=== PATIENT | female | born 1970 | race Caucasian/White ===

== ENCOUNTER → 2021-07-31 | Outpatient (CLI) | payer BC ==
--- NOTE | 2021-08-01 08:09 | MM ---
Reason for Exam: Screening (asymptomatic). Baseline mammogram. Patient History: Menarche at age 13. First Full-Term at age 25. Risk Values: [place] 5 year model risk: 1.0%. NCI Lifetime model risk: 8.9%. Prior Study Comparison: Patient's first Mammogram. No prior studies available for comparison. Tissue Density: The breast tissue is heterogeneously dense. This may lower the sensitivity of mammography. Findings: Analyzed By CAD. There is no suspicious group of microcalcifications or new suspicious mass in either breast. Overall Assessment: Benign, BI-RAD 2 Management: Screening Mammogram of both breasts in 1 year. A clinical breast exam by your physician is recommended on an annual basis and results should be correlated with mammographic findings. Electronically signed and approved by: Kin Sanchez M.D. Radiologis
== END | disposition home or self-care (01) ==
LOC: RADMAMWWP 09:15
PROVIDERS: ATTEND Obstetrics & Gynecology
DX: Z12.31 Encounter for screening mammogram for malignant neoplasm of breast (principal)
CPT/HCPCS: 77067

== ENCOUNTER → 2022-05-21 | Outpatient (CLI) | payer BC, OTHER ==
--- NOTE | 2022-05-21 17:30 | CT ---
EXAMINATION TYPE: CT knee LT wo con DATE OF EXAM: 05/21/2022 COMPARISON: Recent CT April 03, 2022. HISTORY: left knee osteoarthritis. Pain. Status post arthroscopy with partial medial meniscectomy June 27, 2021. Status post work injury February 07, 2021. CT DLP: 959 mGycm Automated exposure control for dose reduction was used. FINDINGS: Exam is performed for surgical planning and not for diagnostic purposes. Images of the pelv is redemonstrate anteverted uterus and scattered pelvic phleboliths. Mild axial joint space loss in b oth hips is redemonstrated. No suspicious incidental finding is present. Prior visualized 3.0 cm cyst or cystic lesion right pelvis now is not clearly seen. Images of the left knee redemonstrate moderate narrowing patellofemoral compartment. There is moderat e narrowing medial tibiofemoral compartment redemonstrated. There is persistent 1.5 cm chondroid intr amedullary lesion in the distal right femoral metaphysis could reflect enchondroma or other nonaggres sive etiology. Images of the bilateral ankles show no suspicious incidental finding. IMPRESSION: As above. No significant new finding from most recent prior CT.
== END | disposition home or self-care (01) ==
LOC: RADCTMAIN 15:53
PROVIDERS: ATTEND Orthopaedic Surgery
DX: M17.12 Unilateral primary osteoarthritis, left knee (principal)

== ENCOUNTER → 2022-06-03 | Outpatient (CLI) | payer OTHER ==
[2022-06-03 15:46] LABS: Partial Thromboplastin Time 22.4 sec (22.0-30.0); Prothrombin Time 10.4 sec (9.0-12.0)
[2022-06-03 20:33] LABS: HCT 42.8 % (37.2-46.3); HGB 13.2 g/dL (12.0-15.0); MCHC 30.8 g/dL (32.0-37.0); MCV 87.5 fL (80.0-97.0); Mean Platelet Volume 11.3 fL (9.5-12.2); NRBC Per 100 WBC 0 /100 WBCS (0.0-0.0); Platelet Count 265 X 10*3/uL (140-440); RBC 4.89 X 10*6/uL (4.10-5.20); RDW 13.1 % (11.5-14.5); WBC 9.67 X 10*3/uL (4.50-10.00)
[2022-06-03 20:47] LABS: Appearance,Urine Clear (Clear); Bilirubin,Urine Negative (Negative); Blood,Urine Negative (Negative); Color,Urine Yellow (Yellow); Ketones,Urine 15 mg/dL (Negative); Nitrite,Urine Negative (Negative); PH, Urine 5.5 (5.0-8.0); Specific Gravity,Urine 1.014 (1.001-1.030); Urobilinogen,Urine 0.2 (0.2,1.0)
[2022-06-03 20:53] LABS: Bacteria,Urine None Seen /HPF (None Seen)
[2022-06-03 21:09] LABS: African American GFR (CKD) 115.5 (60.0-200.0); Albumin 4.2 g/dL (3.8-4.9); Albumin/Globulin Ratio 1.56 (1.60-3.17); Anion Gap 11.8 mmol/L (10.00-18.00); BUN/Creat Ratio 19.29 Ratio (12.00-20.00); Blood Urea Nitrogen 13.5 mg/dL (9.0-27.0); Calcium 9.9 mg/dL (8.7-10.3); Carbon Dioxide 25.2 mmol/L (20.0-27.5); Globulin 2.7 g/dL (1.6-3.3); Non-African American GFR(CKD) 99.6 (60.0-200.0); Potassium 4.1 mmol/L (3.5-5.5); Total Bilirubin 0.4 mg/dL (0.30-1.20); Total Protein 6.9 g/dL (6.2-8.2)
== END | disposition home or self-care (01) ==
LOC: LABPAT 14:49
PROVIDERS: ATTEND Orthopaedic Surgery
DX: Z01.818 Encounter for other preprocedural examination (principal); M17.12 Unilateral primary osteoarthritis, left knee; R94.31 Abnormal electrocardiogram [ECG] [EKG]
CPT/HCPCS: 80053; 81001; 85027; 85610; 85730; 87070; 93005

== ENCOUNTER 2022-06-26 08:13 | Day surgery (SDC) | payer OTHER ==
[~2022-06-26 08:13] MED LIST: ACETAMINOPHEN TAB 500 MG TAB PO PRN; DEXAMETHASONE SOD PHOSPHATE 10 MG/ML 1 ML VIAL IV PRN; DEXAMETHASONE SOD PHOSPHATE 4 MG/ML 1 ML VIAL IV ONE; DOCUSATE 100 MG CAP PO PRN; FAMOTIDINE 20 MG/2 ML VIAL IVP PRN; HYDROmorphone 0.5 MG/0.5 ML SYRINGE IVP PRN; KETOROLAC 15 MG/ML 1 ML VIAL IVP PRN; LACTATED RINGERS 1,000 ML IV SCH; LIDOCAINE 1% (10MG/ML) FOR IV START INTRADERMA PRN; MIDAZOLAM 2 MG/2 ML VIAL IV PRN; ONDANSETRON 4 MG/2 ML VIAL IVP ONE; ONDANSETRON 4 MG/2 ML VIAL IVP PRN; ROPIVACAINE/EPI/CLONIDINE/KET 50 ML SYRINGE MISCELLANE PRN; TRANEXAMIC ACID IN NACL,ISO-OS 1,000 MG in SALINE 1 100ML.BAG IV PRN; TRANEXAMIC ACID IN NACL,ISO-OS 1,000 MG in SALINE 1 100ML.BAG IVPB PRN; oxyCODONE ER 10 MG TAB.ER.12H PO PRN
[2022-06-26] MEDS ORDERED: MIDAZOLAM 2 MG/2 ML VIAL IVP ONE (09:14)
[2022-06-26 09:46] VITALS: TEMP 97.2
[2022-06-26] MEDS ORDERED: ROPIVACAINE 5 MG/ML 30 ML VIAL ONE (10:01)
[2022-06-26] MEDS ORDERED: DEXAMETHASONE SOD PHOSPHATE 4 MG/ML 1 ML VIAL ONE (10:01)
[2022-06-26] MEDS ORDERED: NEOSTIGMINE 1 MG/ML 10 ML VIAL ONE (10:01)
[2022-06-26] MEDS ORDERED: LIDOCAINE 2% INJ 20 MG/ML (2 ML VIAL) ONE (10:01)
[2022-06-26] MEDS ORDERED: SUCCINYLCHOLINE CHLORIDE 200 MG/10 ML VIAL IV ONE (10:01)
[2022-06-26] MEDS ORDERED: TRANEXAMIC ACID IN NACL,ISO-OS 1,000 MG/100 ML BAG ONE (10:01)
[2022-06-26] MEDS ORDERED: GLYCOPYRROLATE 0.2 MG/ML 2 ML VIAL ONE (10:01)
[2022-06-26] MEDS ORDERED: PROPOFOL 10 MG/ML 20 ML VIAL IV ONE (10:01)
[2022-06-26] MEDS ORDERED: ROCURONIUM 10 MG/ML (5 ML VIAL) IV ONE (10:01)
[2022-06-26] MEDS ORDERED: MIDAZOLAM 2 MG/2 ML VIAL ONE (10:01)
[2022-06-26] MEDS ORDERED: fentaNYL (PF) 50 MCG/ML 2 ML AMP ONE (10:01)
--- NOTE | 2022-06-26 10:29 | P.ANPRN ---
Procedure Note - Anesthesia - Nerve Block Performed Left Adductor Canal Single Time Out Performed: Yes Date of Procedure: 06/26/22 Procedure Start Time: :14 Procedure Stop Time: :19 Location of Patient: PreOp Indication: Acute Post-Operative Pain, Requested by Surgeon Sedation Type: Sedate with meaningful contact maintained Preparation: Sterile Prep Position: Supine Needle Types: Pajunk Needle Gauge: 21 Ultrasound used to visualize needle placement: Yes Ultrasound used to observe medication spread: Yes Resistance on Injection: Normal Image Stored and Saved: Yes Events: Uneventful and Well Tolerated (Ropivacaine 0.5% 20 mL plus dexamethasone 4 mg)
--- NOTE | 2022-06-26 10:30 | P.ANPRN ---
Procedure Note - Anesthesia - Nerve Block Performed Left iPack Single Time Out Performed: Yes Date of Procedure: 06/26/22 Procedure Start Time: Procedure Stop Time: Location of Patient: PreOp Indication: Acute Post-Operative Pain, Requested by Surgeon Sedation Type: Sedate with meaningful contact maintained Preparation: Sterile Prep Position: Supine Needle Types: Pajunk Needle Gauge: 21 Ultrasound used to visualize needle placement: Yes Ultrasound used to observe medication spread: Yes Blood Aspirated: No Pain Paresthesia on Injection Noted: No Resistance on Injection: Normal Image Stored and Saved: Yes Events: Uneventful and Well Tolerated (Ropivacaine 0.5% 20 mL plus dexamethasone 4 mg)
[2022-06-26] MEDS ORDERED: SODIUM CHLORIDE 0.9% IRRIGATIO 3,000 ML IRRIGATION ONE (10:37)
[2022-06-26] MEDS ORDERED: LACTATED RINGERS 1,000 ML IV ONE ×2 (11:46→14:46)
[2022-06-26] MEDS ORDERED: NALOXONE 0.4 MG/ML 1 ML VIAL IV PRN (12:08)
--- NOTE | 2022-06-26 12:13 | P.OP ---
Date of Procedure: 06/26/22 Preoperative Diagnosis: Left knee medial compartment osteo-arthritis Postoperative Diagnosis: Same Procedure(s) Performed: Left knee medial unicompartmental arthroplasty Implants: 1. [place] Restoris MCK Size #1 Femoral Implant 2. [place] Restoris MCK Size #1 Tibial Implant 3. Yani X3 Uni poly, Size #1, 8-mm Anesthesia: GETA, regional Surgeon: Edward Covarrubias Gas Scrubber Operator #1: Sandhya Mcclure Estimated Blood Loss (ml): 50 IV fluids (ml): 1,200 Pathology: none sent Condition: stable Disposition: PACU Indications for Procedure: The patient is a very pleasant previously healthy 51-year-old female who is had a long-standing history of problems with her left knee. She has both been seen by myself and my partner Dr. Islas. She has had many treatments in regards to her left knee including activity modification, NSAIDs pain medications, injections, attempts at weight loss, a knee arthroscopy all with diminishing relief. Clinically the patient had pain in the medial aspect of her knee and co mplaints consistent with medial compartment arthritis. Her imaging showed isolated the heel compartment joint space narrowing. In discussion with my partner Dr. Islas following her knee arthroscopy she had mainly medial compartment joint wear. She failed nonsurgical treatment and had continued pain in her knee. She requested proceeding with surgery. X-rays of the left hip showed no evidence of arthritis. Based on all of this clinical impression was that her medial knee arthritis was symptomatic for her and that she was a good candidate for a partial knee replacement. I met with the patient preoperatively in the office setting and discussed treatment of their symptomatic knee arthritis. The patient has isolated pain over the medial compartment and has imaging confirming isolated medial compartment arthritis. We discussed the pros and cons of a partial versus total knee replacement. Based on the patient's imaging and clinical exam I think that there are good candidate for a partial medial knee replacement. We discussed the benefits of this compared to conventional total knee replacement including faster recovery and a more normal feeling knee. We discussed the limitations in a partial knee replacement particularly progression of arthritis in the patellofemoral and lateral compartment. The patient understood this and agreed to proceed with a partial knee replacement. I discussed the potential risks and complications at length and gave them ample time to ask questions. Risks discussed included: risks from anesthesia, superficial site surgical infection, acute and/or chronic periprosthetic joint infection, delayed wound healing, drainage, wound necrosis, instability, stiffness, stiffness requiring manipulation and/or revision surgery, progression of arthritis in the patellofemoral and lateral compartment, damage to local blood vessels or nerves, aseptic loosening of the implants, extensor mechanism issues including disruption, patellar maltracking, avascular necrosis etc., continued or worsened knee pain, generalized dissatisfaction with surgical outcome, need for revision surgery, an inability to regain preinjury level of function, DVT, PE, other med ical complications, and possibly loss of life or limb. The patient voiced their understanding that while these are the most common complications other less common complications are possible. They provided both their verbal and written consent to go forward with surgery. Operative Findings: There is full-thickness cartilage loss of the medial femoral condyle and medial tibial plateau. There was intact cartilage with no degenerative changes in the undersurface of the patella, femoral trochlea, and lateral compartment. Description of Procedure: The patient was identified in preoperative holding and the correct operative extremity was verified and marked with a marker. I reviewed the consent form with the patient at length. All of their questions were answered. The patient was given a block by anesthesia. They were then brought back to the operating room. They were transferred onto the operating room table where a general anesthetic, preoperative antibiotics, and tranexamic acid were administered by anesthesia. A tourniquet was applied to the proximal aspect of the operative extremity. The contralateral extremity was padded under the heel and secured to the operating room table with a nonsterile blue towel and tape. The ipsilateral arm was carefully draped across the patient's chest and secured with a pillow and foam. A post was applied over the lateral aspect of the ipsilateral thigh and a bolster was placed under the ipsilateral foot. I verified that the operative extremity was stable and the knee was flexed to 90. The operative extremity was then placed in a leg lynne, nonsterile drapes were applied, and the extremity was prepped and draped sterilely in the standard sterile fashion. Prior to starting surgery timeout was performed identifying the correct patient, operative extremity, and procedure. The leg was then elevated, exsanguinated with an Esmarch bandage, and the tourniquet was inflated. An anterior midline incision was made sharply with a scalpel. Once I had dissected deep to the superficial fascial layer medial and lateral flaps were elevated. A medial parapatellar arthrotomy was created taking care to not inadvertently damaged cartilage in the femoral trochlea since a partial medial compartmental arthroplasty was anticipated. Upon opening the knee joint there was severe arthritic changes in the medial compartment, but the patellofemoral and lateral compartment were free from arthritic changes. Having confirmed isolated medial compartment arthritis I proceeded to perform a partial medial compartment arthroplasty. The anterior horn of the medial meniscus was sharply released and a limited medial release was performed around the posterior medial corner of the knee to facilitate retractor placement. A small portion of the fat pad was excised with electrocautery just to allow visualization. The ACL and PCL were probed and found to be intact. 4 mm pins were then placed within the incision in the medial distal femur and proximal tibia. Arrays were applied to the pins and I verified they were completely tightened. The knee was then registered with the Adility robot and manipulations in implant position were made to balance the knee and opitmize implant position. Using the Adility robotic saw and boo all cuts were made in accordance with our plan. All bony fragments were removed. Local anesthetic was then infiltrated around the joint capsule. Trial implants were then placed within the knee. Range of motion and collateral ligament tension was then evaluated. Once the knee was felt to be appropriately balanced the Elio pins were removed. With the trial components in place, the patella tracked midline. All trial components were then removed from the knee. The knee was thoroughly irrigated with pulsatile lavage. Cement was prepared via vacuum mixing in a bowl on the back table. I then hand pressurized cement into the femur and tibia and placed the implants beginning with the tibial base tray, femoral component, and finally the poly liner. All extruded cement was removed including from the pin sites. Once the cement had hardened the knee was evaluated one final time with the final polyethylene liner in place. The knee had full extension and flexion and felt stable to varus and valgus stress throughout the arc of motion. The tourniquet was released and with the tourniquet down the patella tracked midline. All bleeders were controlled with electrocautery. The knee was thoroughly irrigated using 3 L of sterile saline and pulsatile lavage. The extensor mechanism was then reapproximated using pop off Vicryl sutures followed by a running barbed suture. The knee was then closed in layers with a 0 strata fix for the deep fascial layer, 2-0 strata fix for the superficial subcutaneous layer and Monocryl and Steri-Strips for the skin. A sterile dressing was applied. I verified that all instrument, sponge, and sharp counts were correct. The patient was then transferred off the operating room table, extubated, and brought to recovery having tolerated the procedure well. Sandhya Mcclure PA-C was required as a skilled podiatrist assistant due to the complexity of the procedure for patient positioning, draping, retraction, placement of hardware, and closure of wound. PLAN: The patient can weight-bear as tolerated on the operative extremity. DVT prophylaxis with aspirin 81 mg twice a day based on preoperative risk stratification. The patient is going to attempt to leave as an outpatient. They can be discharged as long as they passed physical therapy and her pain is controlled. Follow-up in the office in 2 weeks for wound check and x-rays of the knee including an AP and lateral.
[2022-06-26] MEDS: diphenhydrAMINE 50 MG/ML 1 ML VIAL IVP ONE ×2 (12:30→13:04)
[2022-06-26] MEDS ORDERED: HYDROmorphone 0.5 MG/0.5 ML SYRINGE IVP ONE (12:30)
[2022-06-26] MEDS ORDERED: diphenhydrAMINE 50 MG/ML 1 ML VIAL ONE (12:32)
--- NOTE | 2022-06-26 12:37 | XR ---
EXAMINATION TYPE: XR knee limited LT DATE OF EXAM: 06/26/2022 12:30 PM INDICATION: Patient age:Female; 51 years old; Reason for study: post op; [facility]. COMPARISON: CT left knee for 6.3, 04/03/2022. TECHNIQUE: The Left knee(s) was examined in frontal and cross table lateral projections. FINDINGS: Postsurgical changes from left knee hemiarthroplasty involving the medial tibiofemoral join t. Hardware appears intact and appropriately aligned. There is associated soft tissue edema and gas. No acute fracture or dislocation. Incidental fabella. Persistent 1.5 cm chondroid intramedullary lesi on within the distal right femoral metaphysis corresponding to prior CT. IMPRESSION: Post surgical changes from left knee hemiarthroplasty. Hardware appears intact with appropriate align ment.
[2022-06-26] MEDS ORDERED: traMADol 50 MG TAB ONE (14:06)
[2022-06-26 14:12] VITALS: RESP 18
[2022-06-26 15:02] VITALS: BP 104/65; PULSE 60
== END 2022-06-26 15:05 | disposition home health service (06) ==
LOC: OR 08:13
PROVIDERS: ATTEND Orthopaedic Surgery
DX: M17.12 Unilateral primary osteoarthritis, left knee (principal); S83.32XA Tear of articular cartilage of left knee, current, initial encounter; G89.18 Other acute postprocedural pain; F10.20 Alcohol dependence, uncomplicated; Z79.1 Long term (current) use of non-steroidal anti-inflammatories (NSAID)
CPT/HCPCS: 27447; 64447; 64999; 97161; 81025; 88300; 73560; C1776; C1713; J2250; J0330; J1200; J1100 ×2; J2710; J0690; J2405; J3010; J2795; J1885; J2704; J1170; J2001

== ENCOUNTER 2022-06-27 22:07 | Emergency (ER) | payer OTHER ==
[2022-06-28] MEDS ORDERED: HYDROmorphone 0.5 MG/0.5 ML SYRINGE IM STA (00:56)
[2022-06-28] MEDS ORDERED: HYDROcodone/APAP 10-325MG 1 EACH TAB PO ONE (04:53)
--- NOTE | 2022-06-28 04:56 | ED ---
General Adult HPI - General Chief complaint: Extremity Injury, Lower Stated complaint: Post Op Complications Time Seen by Provider: 06/28/22 04:05 Source: patient Mode of arrival: ambulatory Limitations: no limitations - History of Present Illness Initial comments: This is a 51-year-old female who presents emergency department for postop pain. The patient stated that she underwent a partial knee replacement on the left knee earlier in the day on Wednesday and was discharged. The patient stated that her nerve blocks did wear off from 4 PM and the pain medication was given to her was not helping her at all. The patient did state that she called her surgeon who stated that he could not prescribe narcotic medications over the weekend and to go to the emergency department if her pain became that severe. The patient did state the pain became more severe so she came to the emergency department. The patient denied any other acute pain or complaints including any lightheadedness, dizziness as well as any nausea and vomiting. - Related Data Previous Rx's Medication Instructions Recorded Aspirin 81 mg PO BID 30 Days #60 tab 06/26/22 Diclofenac Sodium [Voltaren] 75 mg PO BID 30 Days #60 tab 06/26/22 Docusate [Colace] 100 mg PO BID #60 capsule 06/26/22 Omeprazole 40 mg PO DAILY 30 Days #30 cap 06/26/22 Ondansetron Odt [Zofran Odt] 4 mg PO Q8HR PRN #10 tab 06/26/22 traMADol HCL 50 mg PO Q6H 7 Days #28 tab 06/26/22 HYDROcodone/APAP 10-325MG [Brainerd 1 tab PO Q6HR PRN 3 Days #6 tab 06/28/22 10-325] Allergies Allergy/AdvReac Type Severity Reaction Status Date / Time No Known Allergies Allergy Verified 06/26/22 08:38 Review of Systems ROS Statement: Those systems with pertinent positive or pertinent negative responses have been documented in the HPI. ROS Other: All systems not noted in ROS Statement are negative. Past Medical History Past Medical History: Osteoarthritis (OA) Additional Past Medical History / Comment(s): this surgery has been rescheduled several times per pt. due to insurance & workman's comp. issues History of Any Multi-Drug Resistant Organisms: None Reported Past Surgical History: Orthopedic Surgery Additional Past Surgical History / Comment(s): lorne knee arthroscopies, lorne CTS Past Anesthesia/Blood Transfusion Reactions: No Reported Reaction Past Psychological History: No Psychological Hx Reported Smoking Status: Never smoker - Past Family History Mother Family Medical History: No Reported History General Exam Limitations: no limitations General appearance: alert, in no apparent distress Head exam: Present: atraumatic, normocephalic, normal inspection Eye exam: Present: normal appearance, PERRL Pupils: Present: normal accommodation ENT exam: Present: normal exam, normal oropharynx, mucous membranes moist Neck exam: Present: normal inspection, full ROM Respiratory exam: Present: normal lung sounds bilaterally Cardiovascular Exam: Present: regular rate, normal rhythm, normal heart sounds GI/Abdominal exam: Present: soft, normal bowel sounds Extremities exam: Present: normal inspection, other (Incision and drainage of the left knee without any signs of erythema or induration. The patient had decreased range of motion and tenderness palpation over the incision site.) Back exam: Present: normal inspection, full ROM Neurological exam: Present: alert, oriented X3, CN II-XII intact Psychiatric exam: Present: normal affect, normal mood Skin exam: Present: warm, dry Course Vital Signs 06/27/22 06/28/22 22:18 05:17 Temperature 98.4 F 98.2 F Pulse Rate 89 79 Respiratory 22 16 Rate Blood Pressure 129/81 126/82 O2 Sat by Pulse 100 99 Oximetry Medical Decision Making - Medical Decision Making Was pt. sent in by a medical professional or institution ([facility], PAINT PREPARER, urgent care, hospital, or long term...) When possible be specific @ -No Did you speak to anyone other than the patient for history (EMS, parent, family, police, friend...)? What history was obtained from this source @ -No Did you review nursing and triage notes (agree or disagree)? Why? @ -I reviewed and agree with nursing and triage notes Were old charts reviewed (outside hosp., previous admission, EMS record, old EKG, old radiological studies, urgent care reports/EKG's, long term records)? Report findings @ -No old charts were reviewed Differential Diagnosis (chest pain, altered mental status, abdominal pain women, abdominal pain men, vaginal bleeding, weakness, fever, dyspnea, syncope, headache, dizziness, GI bleed, back pain, seizure, CVA, palpatations, mental health)? @ -Postop pain, postop infection, cellulitis EKG interpreted by me (3pts min.). @ -None X-rays interpreted by me (1pt min.). @ -None done CT interpreted by me (1pt min.). @ -None done U/S interpreted by me (1pt. min.). @ -None done What testing was considered but not performed or refused? (CT, X-rays, U/S, labs)? Why? @ -None What meds were considered but not given or refused? Why? @ -None Did you discuss the management of the patient with other professionals (pro fessionals i.e. , PA, PAINT PREPARER, lab, RT, psych nurse, social service technician, rn integrated, teacher, equal employment opportunity officer, case management social worker)? Give summary @ -No Was smoking cessation discussed for >3mins.? @ -No Was critical care preformed (if so, how long)? @ -No Were there social determinants of health that impacted care today? How? (Homelessness, low income, unemployed, alcoholism, drug addiction, transportation, low edu. Level, literacy, decrease access to med. care, half-way, rehab)? @ -No Was there de-escalation of care discussed even if they declined (Discuss DNR or withdrawal of care, Hospice)? DNR status @ -No What co-morbidities impacted this encounter? (DM, HTN, Smoking, COPD, CAD, Cancer, CVA, ARF, Chemo, Hep., AIDS, mental health diagnosis, sleep apnea, morbid obesity)? @ -Recent partial knee replacement Was patient admitted / discharged? Hospital course, mention meds given and route, prescriptions, significant lab abnormalities, going to OR and other pertinent info. @ -The patient was seen and evaluated emergency department. Physical exam, the patient was resting in a wheelchair with mild distress secondary to pain over the incision. Due to the patient's recent surgery, no further imaging was obtained at this time. The patient was given tramadol by her primary surgeon however this was not helping therefore the patient was given a dose of Brainerd in the emergency department as well as a prescription for Brainerd to be taken at home for one day. The patient did have follow-up scheduled for tomorrow and she was advised to follow-up for that for further pain medications. The patient was agreeable to this plan and all of her questions were answered appropriately. The patient was discharged home in stable condition with her daughter. Undiagnosed new problem with uncertain prognosis? @ -No Drug Therapy requiring intensive monitoring for toxicity (Heparin, Nitro, Insulin, Cardizem)? @ -No Were any procedures done? @ -No Diagnosis/symptom? @ -Postop pain Acute, or Chronic, or Acute on Chronic? @ -Acute Uncomplicated (without systemic symptoms) or Complicated (systemic symptoms)? @ -Uncomplicated Side effects of treatment? @ -No Exacerbation, Progression, or Severe Exacerbation? @ -No Poses a threat to life or bodily function? How? (Chest pain, [place], [place], pneumonia, PE, COPD, DKA, ARF, appy, cholecystitis, CVA, Diverticulitis, Homicidal, Suicidal, threat to staff... and all critical care pts) @ -No Disposition Clinical Impression: Post-op pain Disposition: HOME SELF-CARE Condition: Stable Instructions (If sedation given, give patient instructions): Knee Pain (ED) Prescriptions: HYDROcodone/APAP 10-325MG [Brainerd 10-325] 1 tab PO Q6HR PRN 3 Days #6 tab PRN Reason: Pain Is patient prescribed a controlled substance at d/c from ED?: Yes When asked, does pt state using other controlled substances?: Yes If prescribed controlled substance>3 days was MAPS reviewed?: Prescribed <3 Days If opioid is for acute pain is fill amount 7 days or less?: Yes If Rx opioid, was Start Talking consent form obtained?: Yes Referrals: Asher Vick MD [Primary Care Provider] - 1-2 days Time of Disposition: 04:50
[2022-06-28 05:19] VITALS: BP 126/82; PULSE 79; RESP 16; TEMP 98.2
== END 2022-06-28 05:18 | disposition home or self-care (01) ==
LOC: EC 22:07
DX: G89.18 Other acute postprocedural pain (principal)
CPT/HCPCS: 99283; 96372; J1170